=== PATIENT | female | born 1945 | race African-American/Black ===

== ENCOUNTER → 2017-07-10 | Outpatient (CLI) | payer MEDICARE, OTHER ==
[~2017-07-10] MED LIST: ASPIRIN81 M2 PO; LISINOPRIL10 MG PO; METOPROLOL SUCC25 M1 PO; SIMVASTATIN20 MG PO
== END ==
LOC: M.RAD 12:47
DX: Z12.31 Encounter for screening mammogram for malignant neoplasm of breast (principal); N91.2 Amenorrhea, unspecified; M81.0 Age-related osteoporosis without current pathological fracture; Z78.0 Asymptomatic menopausal state

== ENCOUNTER → 2018-08-19 | Outpatient (CLI) | payer MEDICARE, OTHER | LOC: M.RAD 13:24 | DX: Z12.31 Encounter for screening mammogram for malignant neoplasm of breast (principal) ==

== ENCOUNTER → 2019-03-17 | Outpatient (CLI) | payer MEDICARE, OTHER ==
--- NOTE | 2019-03-17 11:17 | 2DMMODE ---
[place] [address] 2 D/M-MODE ECHOCARDIOGRAM Name: CARI VALENCIA Room: [facility]#: [id number] Admission: 03/17/19 Attend Phys: Maninder Callejas MD Discharge: Date of : 43 Date of Service: 03/17/19 1116 Report #: [id number] THIS REPORT FOR: cc: Hillary Loyola Maggie M. DO Blick, David R. MD [facility] THIS REPORT FOR: //name// APPROVED REPORT Study performed: 03/17/2019 09:50:54 EXAM: Comprehensive 2D, Doppler, and color-flow Echocardiogram Patient Location: Out-Patient BSA: 1.89 HR: 78 bpm BP: 150/78 mmHg Other Information Study Quality: Good Indications Cardiomyopathy 2D Dimensions IVSd: 11.31 (7-11mm) LVOT Diam: 20.10 (18-24mm) LVDd: 48.42 mm PWd: 10.64 (7-11mm) Ascending Ao: 31.13 (22-36mm) LVDs: 38.55 (25-40mm) Aortic Root: 32.48 mm Volumes Left Atrial Volume (Systole) LA ESV Index: 20.50 mL/m2 Aortic Valve AoV Peak Milton.: 1.56 m/s AO Peak Gr.: 9.71 mmHg LVOT Max P.83 mmHg AO Mean Gr.: 4.90 mmHg LVOT Mean P.98 mmHg LVOT Max V: 0.68 m/s AO V2 VTI: 34.66 cm LVOT Mean V: 0.46 m/s TANVIR (VTI): 1.60 cm2 LVOT V1 VTI: 17.51 [place] [address] 2 D/M-MODE ECHOCARDIOGRAM Name: CARI VALENCIA Room: [facility]#: [id number] Admission: 03/17/19 Attend Phys: Maninder Callejas MD Discharge: Date of : 43 Date of Service: 03/17/19 1116 Report #: [id number] Mitral Valve E/A Ratio: 0.64 MV Decel. Time: 256.92 ms MV E Max Milton.: 0.57 m/s MV PHT: 74.51 ms MVA (PHT): 2.95 cm2 TDI E/Lateral E': 6.33 E/Medial E': 4.07 Medial E' Milton.: 0.14 m/s Lateral E' Milton.: 0.09 m/s Pulmonary Valve PV Peak Milton.: 0.96 m/s PV Peak Gr.: 3.66 mmHg Tricuspid Valve RAP Estimate: 5.00 mmHg TR Peak Gr.: 20.38 mmHg RVSP: 25.38 mmHg PA Pressure: 25.38 mmHg Left Ventricle The left ventricle is normal size. paradoxical septal motion consistent with LBBB There is normal left ventricular wall thickness. Left ventricular systolic function is borderline. LVEF is 50-55%. Grade I - abnormal relaxation pattern. Right Ventricle The right ventricle is normal size. The right ventricular systolic function is normal. Atria The left atrium size is normal. The right atrium size is normal. Aortic Valve The aortic valve is normal in structure. Mild aortic regurgitation. There is no aortic valvular stenosis. Mitral Valve The mitral valve is normal in structure. Mild mitral regurgitation. No evidence of mitral valve stenosis. Tricuspid Valve The tricuspid valve is normal in structure. Mild [place]icus[place] [address] 2 D/M-MODE ECHOCARDIOGRAM Name: CARI VALENCIA Room: [facility]#: [id number] Admission: 03/17/19 Attend Phys: Maninder Callejas MD Discharge: Date of : 43 Date of Service: 03/17/19 1116 Report #: [id number] Pulmonic Valve Pulmonic valve is not well visualized. There is trace pulmonic valvular regurgitation. Great Vessels The aortic root is normal in size. IVC is normal in size and collapses >50% with inspiration. Pericardium There is no pericardial effusion. <Conclusion> LVEF is 50-55%. Mild aortic regurgitation. Mild mitral regurgitation. <ELECTRONICALLY SIGNED> By: Maninder Callejas MD, FACC 03/17/19 1116 1116 1116 Maninder Callejas MD, FAC /INF
== END ==
LOC: M.CRD 09:44
DX: I08.3 Combined rheumatic disorders of mitral, aortic and tricuspid valves (principal); I21.4 Non-ST elevation (NSTEMI) myocardial infarction; I44.7 Left bundle-branch block, unspecified; Z88.1 Allergy status to other antibiotic agents

== ENCOUNTER → 2019-08-26 | Outpatient (CLI) | payer MEDICARE, OTHER | LOC: M.RAD 15:20 | PROVIDERS: ATTEND Family Medicine | DX: Z12.31 Encounter for screening mammogram for malignant neoplasm of breast (principal); Z78.0 Asymptomatic menopausal state; M85.88 Other specified disorders of bone density and structure, other site ==

== ENCOUNTER → 2020-03-18 | Outpatient (CLI) | payer MEDICARE, OTHER ==
[2020-03-18 15:52] LABS: ABSOLUTE LYMPHOCYTES 1.1 thou/uL (0.8-5.3); ABSOLUTE MONOCYTES 0.5 thou/uL (0.0-1.2); ABSOLUTE NEUTROPHILS 5.8 thou/uL (1.6-8.1); BASOPHILS 0.5 %; EOSINOPHILS 0.4 %; HEMATOCRIT 39.6 % (37.0-47.0); HEMOGLOBIN 12.9 gm/dL (12.0-15.0); LYMPHOCYTES 14.9 %; MCHC 32.6 g/dL (28.0-37.0); MPV 8.5 fl. (7.2-11.1); NUCLEATED RBCS 0 /100WBC; PLATELET COUNT* 214 thou/uL (150-400); POLYS 77.2 %; RBC 4.45 mil/uL (4.20-5.00); RDW-CV 13.4 % (10.5-14.5); WBC 7.5 thou/uL (4.0-11.0)
[2020-03-18 15:59] LABS: CREATININE 0.9 mg/dL (0.6-1.3); POTASSIUM 4.3 mmol/L (3.5-5.1)
== END ==
LOC: M.ULTRA 15:00
PROVIDERS: ATTEND Family Medicine
DX: M25.562 Pain in left knee (principal); R22.42 Localized swelling, mass and lump, left lower limb

== ENCOUNTER → 2020-08-22 | Outpatient (CLI) | payer MEDICARE, OTHER | LOC: M.RAD 13:00 | PROVIDERS: ATTEND Family Medicine | DX: Z12.31 Encounter for screening mammogram for malignant neoplasm of breast (principal); N64.89 Other specified disorders of breast ==

== ENCOUNTER → 2020-08-25 | Outpatient (CLI) | payer MEDICARE, OTHER | LOC: M.ULTRA 09:26 | PROVIDERS: ATTEND Family Medicine | DX: N63.20 Unspecified lump in the left breast, unspecified quadrant (principal) ==

== ENCOUNTER → 2021-02-15 | Outpatient (CLI) | payer OTHER | LOC: M.RAD 10:10 | PROVIDERS: ATTEND Family Medicine | DX: R92.2 Inconclusive mammogram (principal); N63.20 Unspecified lump in the left breast, unspecified quadrant ==